=== PATIENT | male | born 1975 | race Two or more races ===

== ENCOUNTER 2021-07-14 17:11 | Emergency (ER) | payer BC ==
[~2021-07-14] VITALS: Ht 182.9 cm; Wt 95.0 kg
[~2021-07-14 17:11] MED LIST: GUAI600T47 PO; LISI10TA16 PO; METF500T16 PO; OXYC5CAP PO
[2021-07-14] MEDS ORDERED: IV NORMAL SALINE 1000ML BAG 1,000 ML IV SCH (18:15)
--- NOTE | 2021-07-14 18:22 | PHYS DOC ---
Past Medical History Past Medical History: High Cholesterol, Hypertension (ARY STONE APRN) Past Surgical History: Other Additional Past Surgical Histo: jaw (ARY STONE APRN) Smoking Status: Never Smoker Alcohol Use: None Drug Use: None (ARY STONE APRN) General Adult EDM: Chief Complaint: ABDOMINAL PAIN HPI: HPI: Patient is a 45 year old male who presents with 2 days of right lower quadrant pain that radiates down into the right scrotum and testicle area. He states not getting better. He states that he took some CBD to help with his pain. Rates his pain about 8 out of 10. He denies urinary symptoms, fever, back pain, nausea, vomiting, diarrhea, constipation, STD concern, penile discharge, headache, dizziness. States the pain is worse when he is up and walking. (ARY STONE [employer]) Review of Systems: Review of Systems: Constitutional: Denies fever or chills. [] Eyes: Denies change in visual acuity. [] HENT: Denies nasal congestion or sore throat. [] Respiratory: Denies cough or shortness of breath. [] Cardiovascular: Denies chest pain or edema. [] GI: + abdominal pain, denies nausea, vomiting, bloody stools or diarrhea. [] : Denies dysuria. + Right testicle pain [] Musculoskeletal: Denies back pain or joint pain. [] Integument: Denies rash. [] Neurologic: Denies headache, focal weakness or sensory changes. [] Endocrine: Denies polyuria or polydipsia. [] Lymphatic: Denies swollen glands. [] Psychiatric: Denies depression or anxiety. [] (ARY STONE [employer]ER) Heart Score: C/O Chest Pain: No (ARY STONE APRN) Current Medications: Current Medications Medications (Trade) Dose Ordered Sig/Demetrius Start Time Stop Time Status Last Admin Dose Admin Fentanyl Citrate (Fentanyl 2ml Vial) 50 mcg 1X ONCE 07/14/21 18:30 07/14/21 18:31 Sodium Chloride 1,000 ml @ 1,000 mls/hr Q1H 07/14/21 18:15 07/14/21 19:14 (ARY STONE [employer]) Allergies: Allergies: Allergies Coded Allergies Type Severity Reaction Last Updated Verified No Known Drug Allergies 07/14/21 No (ARY STONE APRN) Physical Exam: PE: Constitutional: Well developed, well nourished, no acute distress, non-toxic appearance. [] HENT: Normocephalic, atraumatic, bilateral external ears normal, oropharynx moist, no oral exudates, nose normal. [] Eyes: PERRLA, EOMI, conjunctiva normal, no discharge. [] Neck: Normal range of motion, no tenderness, supple, no stridor. [] Cardiovascular:Heart rate regular rhythm, no murmur [] Lungs & Thorax: Bilateral breath sounds clear to auscultation [] Abdomen: Bowel sounds normal, soft, right lower quadrant tenderness, no masses, no pulsatile masses. Right testicle tenderness but normal lie [] Skin: Warm, dry, no erythema, no rash. [] Back: No tenderness, no CVA tenderness. [] Extremities: No tenderness, no cyanosis, no clubbing, ROM intact, no edema. [] Neurologic: Alert and oriented X 3, normal motor function, normal sensory function, no focal deficits noted. [] Psychologic: Affect normal, judgement normal, mood normal. [] (ARY STONE APRN) Current Patient Data: Vital Signs: Vital Signs Date Time Temp Pulse Resp B/P (MAP) Pulse Ox O2 Delivery O2 Flow Rate FiO2 07/14/21 17:40 98.5 98 15 158/96 (116) 100 Room Air 98.5 (ARY STONE APRN) EKG: EKG: [] (ARY STONE APRN) Radiology/Procedures: Radiology/Procedures: [] Impression: [facility] [address] [place], [place] [id number] IMAGING REPORT Signed PATIENT: ДМИТРИЙ GRIFFIN ACCOUNT: [id number] : 1975 LOCATION: ER AGE: 45 SEX: M EXAM STATUS: REG ER ORD. PHYSICIAN: ARY STONE APRN REASON: RLQ PAIN, RIGHT SCROTAL PAIN PROCEDURE: CT ABD PELV W/ IV CONTRST ONLY EXAM: CT Abdomen and Pelvis with IV contrast CLINICAL HISTORY: RLQ PAIN, RIGHT SCROTAL PAIN COMPARISON: none TECHNIQUE: Helical CT of the abdomen and pelvis was performed following the administration of intravenous contrast. Axial, coronal and sagittal reformatted images were generated. PQRS compliance statement - One or more of the following individualized dose reduction techniques were utilized for this study: 1. Automated exposure control 2. Adjustment of the mA and/or kV according to patient size 3. Use of iterative reconstruction technique FINDINGS: Lower Chest: Minimal dependent opacities or lobes likely scarring/atelectasis. Abdomen and Pelvis: Focal low-attenuation along the falciform ligament likely focal fatty infiltrati on of the liver. Calcified gallstone within the gallbladder. No biliary dilatation. Spleen is unremarkable. Adrenal glands are normal. Pancreas is unremarkable. Symmetric nephrograms. No focal renal lesion. No hydronephrosis. Distended bladder is unremarkable. Moderate colonic stool content is seen. Appendix is normal. No small or large bowel dilatation. No bowel obstruction. Aorta is normal in caliber. No abdominal pelvic ascites. No abdominal or pelvic lymphadenopathy. Trace fat-containing periumbilical hernia. Bones: Degenerative changes of spine are seen. IMPRESSION: 1. Cholelithiasis without CT evidence for acute cholecystitis. 2. Focal low-attenuation along the falciform ligament likely focal fatty infiltration of the liver 3. Moderate colonic stool content. No bowel obstruction. 4. Appendix is normal. Electronically signed by: Freddy Freeman MD (07/14/2021 7:27 PM) [facility] DICTATED and SIGNED BY: FREDDY FREEMAN MD DATE: 07/14/21 [id number] [facility] [address] [place] [address] IMAGING REPORT Signed PATIENT: ДМИТРИЙ GRIFFIN ACCOUNT: [id number] : 1975 LOCATION: ER AGE: 45 SEX: M EXAM STATUS: REG ER ORD. PHYSICIAN: ARY STONE APRN REASON: RIGHT TESTICULAR PAIN AND TENDERNESS PROCEDURE: TESTICULAR/SCROTUM CLINICAL HISTORY: Reason: RIGHT TESTICULAR PAIN AND TENDERNESS / Spl. Instructions: / History: COMPARISON: None available. TECHNIQUE: Ultrasound images of the scrotum was performed with gooden-scale and color doppler. FINDINGS: The right testis measures 3.6 x 2.4 x 1.9 cm. The left testis measures 4.0 x 3.1 x 1.8. There is no intratesticular abnormality. Testicular vascularity is symmetric and within normal limits. The epididymis is normal in appearance bilaterally. There is no hydrocele or varicocele. IMPRESSION: Negative examination. Normal testes with normal testicular blood flow. Electronically signed by: Varun Massey III, MD (07/14/2021 7:50 PM) [facility] DICTATED and SIGNED BY: VARUN MASSEY III, MD DATE: 07/14/21 [id number] (ARY STONE APRN) Course & Med Decision Making: Course & Med Decision Making Pertinent Labs and Imaging studies reviewed. (See chart for details) See HPI. Alert and oriented x4. Ambulatory steady gait. Speaks in full clear sentences. No swelling to the scrotum or redness. No discharge from the penis or sores. Tenderness to the right testicle. Normal lie. Cremaster is intact. Right lower quadrant tenderness but abdomen is otherwise soft and nontender. No rebound tenderness. Skin pink warm and dry. Afebrile. [] (ARY STONE APRN) Course & Med Decision Making I have participated in the care of this patient and I have reviewed and agree with all pertinent clinical information above including history, exam, and recommendations. Ariana Mccormick DO (ARIANA MCCORMIKC DO) Zoe Disclaimer: Zoe Disclaimer: This electronic medical record was generated, in whole or in part, using a voice recognition dictation system. (ARY STONE APRN) Departure Departure Impression: Primary Impression: Constipation Qualified Codes: K59.00 - Constipation, unspecified Disposition: HOME / SELF CARE / HOMELESS Condition: STABLE Referrals: NICKY ZAVALA DO (PCP) Patient Instructions: Constipation, Adult Additional Instructions: Follow-up with your primary care provider soon as possible. Take medication as prescribed and with food. Drink plenty of fluids. Scripts Polyethylene Glycol 3350 (MIRALAX) 17 Gm Powd.pack 1 PACKET PO DAILY for constipation for 5 Days, #5 PACKET 0 Refills dissolve in water Prov: ARY STONE APRN 07/14/21 ARY STONE APRN Jul 14, 2021 18:22 ARIANA MCCORMICK DO Jul 15, 2021 00:14
[2021-07-14 18:29] LABS: BASO % 0 % (0-3); EOS # 0.1 x10^3/uL (0.0-0.7); EOS % 2 % (0-3); HEMATOCRIT 44.6 % (39.0-53.0); HEMOGLOBIN 15.1 g/dL (13.0-17.5); LYMPH # 2.6 x10^3/uL (1.0-4.8); LYMPH % 36 % (24-48); MEAN CORPUSCULAR HEMOGLOBIN 30 pg (25-35); MEAN CORPUSCULAR HGB CONC 34 g/dL (31-37); MEAN CORPUSCULAR VOLUME 89 fL (79-100); MONO # 0.7 x10^3/uL (0.0-1.1); MONO % 9 % (0-9); NEUT # 3.9 x10^3/uL (1.8-7.7); NEUT % 53 % (31-73); PLATELET COUNT 164 x10^3/uL (140-400); RED BLOOD COUNT 5.03 x10^6/uL (4.30-5.70); RED CELL DISTRIBUTION WIDTH 13.4 % (11.5-14.5); WHITE BLOOD COUNT 7.3 x10^3/uL (4.0-11.0)
[2021-07-14] MEDS ORDERED: fentaNYL PF VIAL 100 MCG/2 ML VIAL IVP ONE (18:30)
[2021-07-14 18:42] LABS: CALCIUM 8.2 mg/dL (8.5-10.1); GFR 80.4
[2021-07-14 18:47] LABS: ALBUMIN 3.3 g/dL (3.4-5.0); TOTAL BILIRUBIN 0.8 mg/dL (0.2-1.0); TOTAL PROTEIN 6.7 g/dL (6.4-8.2)
[2021-07-14 19:11] VITALS: BP 140/92
[2021-07-14] MEDS ORDERED: IOHEXOL 300 MG/ML 100ML VIAL. IV ONE (19:15)
--- NOTE | 2021-07-14 19:29 | RAD ---
EXAM: CT Abdomen and Pelvis with IV contrast CLINICAL HISTORY: RLQ PAIN, RIGHT SCROTAL PAIN COMPARISON: none TECHNIQUE: Helical CT of the abdomen and pelvis was performed following the administration of intrave nous contrast. Axial, coronal and sagittal reformatted images were generated. PQRS compliance statement - One or more of the following individualized dose reduction techniques wer e utilized for this study: 1. Automated exposure control 2. Adjustment of the mA and/or kV according to patient size 3. Use of iterative reconstruction technique FINDINGS: Lower Chest: Minimal dependent opacities or lobes likely scarring/atelectasis. Abdomen and Pelvis: Focal low-attenuation along the falciform ligament likely focal fatty infiltration of the liver. Calc ified gallstone within the gallbladder. No biliary dilatation. Spleen is unremarkable. Adrenal glands are normal. Pancreas is unremarkable. Symmetric nephrograms. No focal renal lesion. No hydronephrosis. Distended bladder is unremarkable. Moderate colonic stool content is seen. Appendix is normal. No small or large bowel dilatation. No sophie wel obstruction. Aorta is normal in caliber. No abdominal pelvic ascites. No abdominal or pelvic lymphadenopathy. Trac e fat-containing periumbilical hernia. Bones: Degenerative changes of spine are seen. IMPRESSION: 1. Cholelithiasis without CT evidence for acute cholecystitis. 2. Focal low-attenuation along the falciform ligament likely focal fatty infiltration of the liver 3. Moderate colonic stool content. No bowel obstruction. 4. Appendix is normal. Electronically signed by: Freddy Moctezuma MD (07/14/2021 7:27 PM) [facility]
--- NOTE | 2021-07-14 19:52 | RAD ---
CLINICAL HISTORY: Reason: RIGHT TESTICULAR PAIN AND TENDERNESS / Spl. Instructions: / History: COMPARISON: None available. TECHNIQUE: Ultrasound images of the scrotum was performed with gooden-scale and color doppler. FINDINGS: The right testis measures 3.6 x 2.4 x 1.9 cm. The left testis measures 4.0 x 3.1 x 1.8. There is no intratesticular abnormality. Testicular vascularity is symmetric and within normal limit s. The epididymis is normal in appearance bilaterally. There is no hydrocele or varicocele. IMPRESSION: Negative examination. Normal testes with normal testicular blood flow. Electronically signed by: Anthony Cardona III, MD (07/14/2021 7:50 PM) [facility]
[2021-07-14 21:00] LABS: BILIRUBIN,URINE NEGATIVE (NEG); CLARITY,URINE CLEAR; COLOR,URINE YELLOW; NITRITE,URINE NEGATIVE (NEG); PH,URINE 6.5 (<5.0-8.0); PROTEIN,URINE NEGATIVE (NEG-TRACE)
[2021-07-14 21:05] LABS: BACTERIA,URINE 0 /HPF (0-FEW); RBC,URINE 0 /HPF (0-2); WBC,URINE 0 /HPF (0-4)
[2021-07-14] MEDS ORDERED: POLY17PO29 PO (21:15)
== END 2021-07-14 23:15 | disposition home or self-care (01) ==
LOC: ER 17:11
DX: K59.00 Constipation, unspecified (principal); N50.811 Right testicular pain; E78.00 Pure hypercholesterolemia, unspecified; I10 Essential (primary) hypertension
CPT/HCPCS: 36415; 74177; 76870; 80053; 81001; 83690; 85025; 96361; 96374; 99285; J3010; J7030